=== PATIENT | male | born 1960 | race Caucasian/White ===

== ENCOUNTER 2018-10-31 09:42 | Emergency (ER) | payer BC, MEDICAID ==
[~2018-10-31] VITALS: Ht 180.3 cm; Wt 109.1 kg
[2018-10-31 09:52] VITALS: BP 141/81; Ht 180.3 cm; Wt 109.1 kg
[2018-10-31] MEDS ORDERED: ASPIRIN81 MG PO (09:54)
[2018-10-31] MEDS ORDERED: COZAAR25 MG PO (09:54)
== END 2018-10-31 11:08 | disposition home or self-care (01) ==
LOC: D.ER 09:42
DX: K08.109 Complete loss of teeth, unspecified cause, unspecified class (principal); K91.841 Postprocedural hemorrhage of a digestive system organ or structure following other procedure; I10 Essential (primary) hypertension